=== PATIENT | male | born 1940 | race Caucasian/White ===

== ENCOUNTER 2022-03-30 13:36 | Emergency (ER) | payer OTHER ==
[2022-03-30 14:18] VITALS: RESP 18; TEMP 100.3; BMI 28.2
[2022-03-30] MEDS ORDERED: ACETAMINOPHEN 1000 MG/100 ML BAG IVPB ONE (15:52)
[2022-03-30] MEDS ORDERED: ACETAMINOPHEN INJECTION 100 ML IVPB ONE (16:03)
[2022-03-30 17:17] LABS: BASO % 0.4 % (0-2.0); EOS % 0.5 % (0-4.5); HEMATOCRIT 42.7 % (35.4-49); HEMOGLOBIN 14.5 GM/dL (11.7-16.9); MCH 28.2 pg (25.7-33.7); MCHC 33.8 g/dl (32.0-35.9); MEAN CELL VOLUME 83.3 fl (80-96); MEAN PLT VOLUME 8.2 fl (7.5-11.1); MONO % 11.7 % (3.8-10.2); NEUT % 71.4 % (42.8-82.8); PLATELET COUNT 146 10^3/uL (134-434); RBC 5.13 M/mm3 (4.00-5.60); RDW 14.1 % (11.9-15.9); WHITE BLOOD COUNT 5.3 K/mm3 (4.0-10.0)
[2022-03-30 17:38] LABS: CALCIUM 8.7 mg/dL (8.5-10.1)
[2022-03-30 17:39] LABS: ALBUMIN 3.5 g/dl (3.4-5.0); BLOOD UREA NITROGEN 26.6 mg/dL (7-18)
[2022-03-30 17:42] LABS: CREATININE 1.1 mg/dL (0.55-1.3)
[2022-03-30 17:43] LABS: BILIRUBIN,TOTAL 0.7 mg/dL (0.2-1); TOT PROT 6.6 g/dl (6.4-8.2)
[2022-03-30 20:15] VITALS: BP 141/82; PULSE 84
[2022-03-30 20:57] LABS: N-TERMINAL BNP 831.2 pg/ml (5-450)
== END 2022-03-30 20:17 | disposition left against medical advice (07) ==
LOC: JER 13:36
PROC: 3E033GC Introduction of Other Therapeutic Substance into Peripheral Vein, Percutaneous Approach (ICD-10-PCS; principal; 2022-03-30)
DX: R55 Syncope and collapse (principal)
CPT/HCPCS: 0241U-QW; 36415; 70450-TC; 72125-TC; 80053; 82550; 83880; 84484; 85025; 93005; 93010; 99285-25